=== PATIENT | male | born 1950 | race Caucasian/White ===

== ENCOUNTER → 2016-11-19 | Outpatient (CLI) | payer MEDICARE ==
[2016-11-19 14:05] LABS: BLOOD UREA NITROGEN 16 mg/dL (6-24); ESTIMATED GFR (MDRD EQUATION) > 60
== END | disposition disaster alternative care site (69) ==
LOC: GLAB 08:00
PROVIDERS: Ophthalmology
DX: H46.01 Optic papillitis, right eye (principal); H54.7 Unspecified visual loss

== ENCOUNTER → 2016-11-20 | Outpatient (CLI) | payer MEDICARE | END | disposition disaster alternative care site (69) | LOC: GRAD 09:49 → GLAB 10:00 → GRAD 11:00 | DX: H46.01 Optic papillitis, right eye (principal); H54.3 Unqualified visual loss, both eyes | CPT/HCPCS: A9577 ==